=== PATIENT | female | born 1970 | race Caucasian/White ===

== ENCOUNTER 2022-09-06 15:19 | Outpatient (CLI) | payer BC, SELFPAY ==
[2022-09-06 22:26] LABS: Chloride* 111 mmol/L (96-114)
[2022-09-06 22:27] LABS: Albumin* 4.2 g/dL (3.3-5.0); Potassium* 4.5 mmol/L (3.6-5.1); Sodium* 142 mmol/L (135-149)
[2022-09-06 22:29] LABS: Creatinine* 0.6 mg/dL (0.5-1.5); Estimated Glomerular Filt Rate 108 ml/min
[2022-09-06 22:30] LABS: Alanine Aminotransferase* 22 U/L (4-35); Alkaline Phosphatase* 111 U/L (40-150); Aspartate Amino Transferase* 22 U/L (12-35); Bilirubin Total* 0.4 mg/dL (0.1-1.5); Blood Urea Nitrogen* 13 mg/dL (7-30); Calcium* 9.7 mg/dL (8.4-10.6); Carbon Dioxide* 24 mmol/L (20-32); Total Protein* 6.7 g/dL (6.0-8.3)
[2022-09-06 22:46] LABS: Glucose* 96 mg/dL (60-115)
== END 2022-09-06 15:20 | disposition home or self-care (01) ==
PROVIDERS: PCP Family Medicine; Visit Provider Family Medicine
DX: I49.9 Cardiac arrhythmia, unspecified (principal)
CPT/HCPCS: 80053; 84443

== ENCOUNTER 2022-09-16 12:37 | Outpatient (CLI) | payer BC, SELFPAY | END 2022-09-16 12:38 | disposition home or self-care (01) | LOC: RAD 12:38 | PROVIDERS: PCP Family Medicine; Visit Provider Family Medicine | DX: I49.8 Other specified cardiac arrhythmias (principal) | CPT/HCPCS: 93306 ==

== ENCOUNTER 2023-08-01 13:08 | Outpatient (CLI) | payer BC, SELFPAY ==
--- NOTE | 2023-08-01 13:00 | CRLHL7_ITS ---
For Patients: As a result of the Century Cures Act, medical imaging exams and procedure reports are released immediately into your electronic medical record. You may view this report before your referring provider. If you have questions, please contact your health care provider. Indication: Cellulitis, right face and periorbital. Technique: Helical axial sections were obtained through the facial skeleton, mandible and adjacent structures without intravenous contrast material. Data was reformatted not only in axial but also coronal planes. Comparison: None available. Findings: Mild asymmetric infiltration of the subcutaneous fat about the medial right orbit (series 3, images 89 and 108). No evidence of postseptal extension. No soft tissue emphysema or radiopaque foreign body. No evidence of discrete or rim enhancing fluid collection. No acute fracture or traumatic subluxation. No evidence of osseous destruction/erosion. Symmetric appearance of the orbits without evidence of traumatic injury or infection. Paranasal sinuses and mastoid air cells are clear. Imaged intracranial structures appear within normal limits. Impression: 1. Mild asymmetric infiltration of the subcutaneous fat about the medial right orbit may reflect preseptal cellulitis. 2. No evidence of postseptal extension or discrete fluid collection. Please note that all CT scans at this facility use dose modulation, iterative reconstruction, and/or weight-based dosing when appropriate to reduce radiation dose to as low as reasonably achievable. Dictated by Jin Farrar MD @ 08/02/2023 8:13:36 AM (Electronically Signed)
== END 2023-08-01 13:09 | disposition home or self-care (01) ==
PROVIDERS: PCP Family Medicine; Visit Provider Physician Assistant Medical
DX: L03.211 Cellulitis of face (principal)
CPT/HCPCS: 70487; Q9967

== ENCOUNTER 2023-09-09 13:56 | Outpatient (CLI) | payer BC, SELFPAY | END 2023-09-09 13:57 | disposition home or self-care (01) | PROVIDERS: PCP Family Medicine; Visit Provider Family Medicine | DX: Z01.818 Encounter for other preprocedural examination (principal) | CPT/HCPCS: 80053; 80061 ==

== ENCOUNTER 2024-10-18 13:07 | Outpatient (CLI) | payer OTHER, BC, SELFPAY | END 2024-10-18 13:08 | disposition home or self-care (01) | PROVIDERS: PCP Family Medicine; Visit Provider Family Medicine | DX: I49.9 Cardiac arrhythmia, unspecified (principal); Z13.220 Encounter for screening for lipoid disorders; Z13.21 Encounter for screening for nutritional disorder; Z13.29 Encounter for screening for other suspected endocrine disorder | CPT/HCPCS: 80053; 80061; 82306; 84443 ==

== ENCOUNTER 2024-12-13 06:44 | Outpatient (CLI) | payer OTHER, BC, SELFPAY ==
--- NOTE | 2024-12-13 09:19 | P.ANES_ITS ---
Anesthesia Charges Start Date/Time Anesthesia Start Date: 12/13/24 Anesthesia Start Time: 07:55 Stop Date/Time Anesthesia Stop Date: 12/13/24 Anesthesia Stop Time: 08:32 Coding CPT Codes CPT Codes: CARLOS LWDean INTST NDSC NOS - 20789 ([id number]) P2 - PATIENT W/MILD SYST DISEASE, QX - SEWER PIPE LAYER HELPER SVC W/ MD MED DIRECTION, QK - BOXING MACHINE OPERATOR 2-4 CNCRNT ANES PROC
--- NOTE | 2024-12-13 09:19 | W.ANESCHARGE ---
Anesthesia Charges Start Date/Time Anesthesia Start Date: 12/13/24 Anesthesia Start Time: 07:55 Stop Date/Time Anesthesia Stop Date: 12/13/24 Anesthesia Stop Time: 08:32 Coding CPT Codes CPT Codes: CARLOS LWDean INTST NDSC NOS - 99183 ([id number]) P2 - PATIENT W/MILD SYST DISEASE, QX - OLAP DEVELOPER SVC W/ MD MED DIRECTION, QK - PATIENT OFFICE REP 2-4 CNCRNT ANES PROC
--- NOTE | 2024-12-13 09:39 | P.ANES_ITS ---
Anesthesia Charges Start Date/Time Anesthesia Start Date: 12/13/24 Anesthesia Start Time: 07:55 Stop Date/Time Anesthesia Stop Date: 12/13/24 Anesthesia Stop Time: 08:32 Coding CPT Codes CPT Codes: CARLOS LWR INTST NDSC NOS - 56535 ([id number]) P2 - PATIENT W/MILD SYST DISEASE, QK - BAR TACKER SEWING MACHINE 2-4 CNCRNT ANES PROC, QX - MARKING MACHINE OPERATOR SVC W/ MD MED DIRECTION
--- NOTE | 2024-12-13 09:39 | W.ANESCHARGE ---
Anesthesia Charges Start Date/Time Anesthesia Start Date: 12/13/24 Anesthesia Start Time: 07:55 Stop Date/Time Anesthesia Stop Date: 12/13/24 Anesthesia Stop Time: 08:32 Coding CPT Codes CPT Codes: CARLOS LWR INTST NDSC NOS - 26716 ([id number]) P2 - PATIENT W/MILD SYST DISEASE, QK - ROTARY DRILL RIG OPERATOR 2-4 CNCRNT ANES PROC, QX - ARMATURE BALANCER SVC W/ MD MED DIRECTION
== END 2024-12-13 06:45 | disposition home or self-care (01) ==
LOC: OP CLINIC 06:45
PROVIDERS: PCP Family Medicine; Visit Provider Surgery
DX: R19.5 Other fecal abnormalities (principal); D12.0 Benign neoplasm of cecum; D12.4 Benign neoplasm of descending colon; D12.3 Benign neoplasm of transverse colon; D12.5 Benign neoplasm of sigmoid colon; D12.8 Benign neoplasm of rectum
CPT/HCPCS: 00811; 45385; J2704

== ENCOUNTER 2024-12-24 11:40 | Outpatient (CLI) | payer OTHER, BC, SELFPAY | END 2024-12-24 11:41 | disposition home or self-care (01) | PROVIDERS: PCP Family Medicine; Visit Provider Family Medicine | DX: L03.211 Cellulitis of face (principal); B96.89 Other specified bacterial agents as the cause of diseases classified elsewhere | CPT/HCPCS: 87070 ==

== ENCOUNTER 2025-01-11 14:18 | Emergency (ER) | payer OTHER, BC, SELFPAY ==
--- OUTSIDE RECORDS SUMMARY | 2025-01-11 14:22 | XMS_ITS | Clinical Summary ---
Author Organization [facility] Address [address] [place] [address] Care Team Providers Care Cto Name Role Phone Braulio Guido MD Unavailable [phone] Andrew Ramey MD Primary Care Provider [phone] Allergies Active Allergy Reactions Criticality Noted Date Comments Hydroxyzine 02/10/2016 Eszopiclone 02/10/2016 Zolpidem 02/10/2016 Medications LORazepam (ATIVAN) 0.5 MG tablet Take 0.5 mg by mouth every 6 hours as needed for anxiety Active escitalopram (LEXAPRO) 10 MG tablet Take 10 mg by mouth daily Active promethazine (PHENERGAN) 25 MG tablet Take 25 mg by mouth every 6 hours as needed for nausea Active traMADol (ULTRAM) 50 MG tablet Take 50 mg by mouth every 6 hours as needed for severe pain Active benzonatate (TESSALON) 100 MG capsuleIndicatio ns:Community acquired pneumonia, unspecified laterality Take 1 capsule (100 mg) by mouth 3 times daily as needed for cough 30 capsule 9 Active albuterol (PROAIR HFA/PROVENTIL HFA/VENTOLIN HFA) 108 (90 Base) MCG/ACT inhaler Inhale 2 puffs into the lungs every 4 hours as needed for shortness of breath / dyspnea or wheezing 1 Inhaler 9 Active Active Problems Problem Noted Date Diagnosed Date Intractable nausea and vomiting 11/04/2018 Resolved Problems Problem Noted Date Diagnosed Date Resolved Date Ankle sprain 08/09/2011 08/27/2011 Family History Medical History Relation Comments Aneurysm Father Melanoma Mother Glaucoma No family hx of Macular Degeneration No family hx of Relation Status Comments Father Mother Social History Tobacco Use Types Packs/Day Years Used Date Smoking Tobacco: Every Day Adolescent Education Answer Date Record ed Getting School Help Needed Not on file 07/03 Comments Unknown Sex and Gender Information Value Date Recorded Sex Assigned at Not on file Legal Sex Female 3:20 AM BRAND DIRECTOR Gender Identity Not on file Sexual Orientation Not on file Last Filed Vital Signs Vital Sign Reading Time Taken Comments Blood Pressure 185/115 07/27/2023 1:23 PM CDT Pulse 87 07/27/2023 1:23 PM CDT Temperature 36.3 C (97.4 F) 07/27/2023 1:23 PM CDT Respiratory Rate 22 11/07/2018 11:5 4 AM BRAND DIRECTOR Oxygen Saturation 97% 07/27/2023 1:23 PM CDT Inhaled Oxygen Concentration - - Weight 80.6 kg (177 lb 12.8 oz) 11/04/2018 2:40 PM BRAND DIRECTOR Height 167.6 cm (5' 6) 11/04/2018 2:40 PM BRAND DIRECTOR Body Mass Index 28.7 11/04/2018 2:40 PM BRAND DIRECTOR Plan of Treatment Health Maintenance Due Date Last Done Comments ADVANCE CARE PLANNING 1969 ANNUAL REVIEW OF HM ORDERS 1969 CT COLONOGRAPHY 1969 FIT 1969 FLEX SIG 1969 MAMMO SCREENING 1969 sDNA (Cologuard) 1969 YEARLY PREVENTIVE VISIT 1972 COLONOSCOPY 12/21/1979 COLORECTAL CANCER SCREENING 12/21/1979 HIV SCREENING 1984 HEPATITIS C SCREENING 12/21/1987 HEPATITIS B IMMUNIZATION (1 of 3 - 19+ 3-dose series) 1988 Pneumococcal Vaccine: 50+ Years (1 of 2 - PCV) 1988 DTAP/TDAP/TD IMMUNIZATION (1 - Tdap) 1994 LIPID 2009 LUNG CANCER SCREENING 12/21/2019 ZOSTER IMMUNIZATION (1 of 2) 12/21/2019 PAP 08/23/2021 08/23/2018, 08/23/2018 DIABETES SCREENING 11/07/2021 11/07/2018, 0 11/04/2018, 11/02/2018, Additional history exists COVID-19 Vaccine (2023- season) 2024 INFLUENZA VACCINE (#1) 2024 PHQ-2 (once per calendar year) 2024 HPV IMMUNIZATION Aged Out No longer e ligible based on patient's age to complete this topic MENINGITIS IMMUNIZATION Aged Out No l onger eligible based on patient's age to complete this topic Procedures Procedure Name Priority Date/Time Associated Diagnosis Comments BASIC METABOLIC PANEL STAT 11/07/2018 1:23 PM BRAND DIRECTOR from Last 3 Months or Most Recently Relevant to Health Maintenance Results * (ABNORMAL) Basic metabolic panel (11/07/2018 1:23 PM BRAND DIRECTOR) Sodium 143 133 - 144 mmol/L 11/07/2018 1:43 PM [facility] Potassium 3.5 3.4 - 5.3 mmol/L 11/07/2018 1:43 PM [facility] Chloride 111(H) 94 - 109 mmol/L 11/07/2018 1:43 PM [facility] Carbon Dioxide 24 20 - 32 mmol/L 11/07/2018 1:49 PM [facility] Anion Gap 8 3 - 14 mmol/L 11/07/2018 1:49 PM [facility] Glucose 105(H) 70 - 99 mg/dL 11/07/2018 1:49 PM [facility] Urea Nitrogen 5(L) 7 - 30 mg/dL 11/07/2018 1:49 PM [facility] Creatinine 0.55 0.52 - 1.04 mg/dL 11/07/2018 1:49 PM [facility] GFR Estimate >90 >60 mL/min/{1. 73_m2} 11/07/2018 1:49 PM [facility] Comment: Non GFR Calc Starting 09/12/2018, serum creatinine based estimated GFR (eGFR) will be calculated using the Chronic Kidney Disease Epidemiology Collaboration (CKD-EPI) equation. GFR Estimate If Black >90 >60 mL/min/{1. 73_m2} 11/07/2018 1:49 PM [facility] Comment: GFR Calc Starting 09/12/2018, serum creatinine based estimated GFR (eGFR) will be calculated using the Chronic Kidney Disease Epidemiology Collaboration (CKD-EPI) equation. Calcium 8.4(L) 8.5 - 10.1 mg/dL 11/07/2018 1:49 PM BRAND DIRECTOR [facility] Blood specimen (specimen) 11/07/2018 1:23 PM BRAND DIRECTOR 11/07/2018 1:29 PM BRAND DIRECTOR us Nora Lugo MD LAB - BLOOD ORDERABLES Fin al Result [facility] [address] [place] [id number] [phone] from Last 3 Months or Most Recently Relevant to Health Maintenance Insurance [place] OF [facility] [place] Advance Directives For more information, please contact: [phone] * Full Code (Latest Code Status on File) Date Activated Date Inactivated Comments 11/05/2018 9:46 AM 11/07/2018 11:34 AM Question Answer Comments Code status determined by: Discussion with carol nt/legal decision maker * Full Code Date Activated Date Inactivated Comments 11/04/2018 2:42 PM 11/05/2018 9:46 AM Question Answer Comments Code status determined by: Discussion with carol nt/legal decision maker Care Teams Cto Relationship Specialty Start Date End Date Andrew Ramey MD [facility] [address] [place] [address] PCP - General Family Practice 11/04/18 Braulio Guido MD [address] [place] [address] [id number] Ophthalmology 12/21/16
--- OUTSIDE RECORDS SUMMARY | 2025-01-11 14:22 | XMS_ITS | Clinical Summary ---
Author Organization [facility] Address [address] [place] [address] Care Team Providers Care Human Capital Manager Name Role Phone Pcp, No Primary Care Provider Unavailabl e Allergies Active Allergy Reactions Criticality Noted Date Comments Hydroxyzine Other - Describe In Comment Field 0 02/10/2016 Eszopiclone Other - Describe In Comment Field 0 02/10/2016 Zolpidem Other - Describe In Comment Field Medications propranolol (INDERAL) 20 mg tablet Take 20 mg by mouth 2 times daily. Active gabapentin (NEURONTIN) 100 mg capsule TAKE 2 CAPSULES BY MOUTH EVERY MORNING AND 3 CAP AT BEDTIME ([facility] FILLED 450 ON DECEMBER 31) 4 Active HYDROcodone-vivienne taminophen (5-325 mg/tablet) TAKE 1 TABLET OP EVERY 4-6 HOURS NEEDED FOR PAIN 3 Active LORazepam (ATIVAN) 0.5 mg tab Take 0.5 mg by mouth. Active nicotine 21 mg/24 hr (NICODERM; HABITROL) 21 mg/24 hr patch APPLY 1 PATCH TOPICALLY TO THE SKIN EVERY 24 HOURS 3 Active nicotine (NICORETTE) 4 mg gum TAKE 1 EACH BUCCALLY EVERY 2 HOURS NEEDED 3 Active propranolol ER (INDERAL LA) 120 mg Cs24 Sustained-Relea se capsule Take 120 mg by mouth once daily. 4 Active propranolol ER (INDERAL LA) 80 mg Cs24 Sustained-Relea se capsule Take 80 mg by mouth once daily. 3 Active traMADoL (ULTRAM) 50 mg tablet Take 50 mg by mouth. Active promethazine (PHENERGAN) 25 mg tablet Take 25 mg by mouth. Active escitalopram oxalate (LEXAPRO) 10 mg tablet Take 10 mg by mouth. Active levoFLOXacin 500 mg tablet Take 500 mg by mouth once daily before evening meal. Taking one a day for 7 days 5 Active buPROPion 300 mg Extended-Releas e tablet Take 300 mg by mouth once daily. 5 Active ciprofloxacin HCl 0.3 % ophthalmic solution Place 1 Drop into right eye. 5 Active cholecalciferol (vitamin D3) (VITAMIN D3 ORAL) Take by mouth. Activ e Active Problems Problem Noted Date Diagnosed Date Migraine without status migrainosus, not intract able 07/08/2015 Anxiety 11/20/2013 Psychosocial stressors 11/20/2013 Insomnia 11/20/2013 Encounters Date Type Department Care Team Description 01/11/2025 12:30 PM CDT Office Visit [address] [phone] Justin Velasco MD Concerns (Diagnosed with gram negative leona on 12/24. Still having sinus issues and headaches.) 01/11/2025 Travel 01/11/2025 Nurse Triage [facility] Centralized Nurse Triage Pcp, No Sinus Problem from Last 3 Months Social History Tobacco Use Types Packs/Day Years Used Date Smoking Tobacco: Every Day Cigarettes 1 20 Smokeless Tobacco: Never Tobacco Cessation:Ready to Q uit: No; Counseling Given: Yes Alcohol Use Standard Drinks/Week Comments Yes 1.7 (1 standard drink = 0.6 oz p ure alcohol) Social Connections Answer Date Recorded Do you often feel lonely or isolated from those around you? 0 01/11/2025 Financial Resource Strain Answer Date R ecorded Difficulty of Paying Living Expenses 3 01/11/2025 Difficulty of Paying Living Expenses Not on file 01/11/2025 Food Insecurity Answer Date Recorded Do you worry your food will run out before you are able to buy more? 1 01/11/2025 Transportation Needs Answer Date Record ed Does lack of transportation keep you from medica l appointments? 1 01/11/2025 Does lack of transportation keep you from work, meetings or getting things that you need? 1 01/11/2025 Housing Stability Answer Date Recorded What is your housing situation today? 1 01/11/2025 Utilities Answer Date Recorded Do you have trouble paying f or utilities (for example, heat, electricity, water, phone)? 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 on file Not on madelaine e Not on file Obstetrics History Last Filed Vital Signs Vital Sign Reading Time Taken Comments Blood Pressure 108/78 01/11/2025 12:36 PM CDT Pulse 80 01/11/2025 12:36 PM CDT Temperature 37.6 C (99.6 F) 10/04/2016 3:35 PM COMPUTER INFORMATION SYSTEMS INSTRUCTOR Respiratory Rate 14 10/04/2016 3:35 PM COMPUTER INFORMATION SYSTEMS INSTRUCTOR Oxygen Saturation 98% 01/11/2025 12:36 PM CDT Inhaled Oxygen Concentration - - Weight 96.2 kg (212 lb) 01/11/2025 12:36 PM CDT Height 167.6 cm (5' 6) 01/11/2025 12:36 PM CDT Body Mass Index 34.22 01/11/2025 12:36 PM CDT Plan of Treatment Health Maintenance Due Date Last Done Comments Tdap 1980 Depression screening for age 12+ 1981 HIV for age 15-65 1984 Hepatitis C screening for age 18-79 12/21/1987 Pneumococcal series for age 50+ (1 of 2 - PCV) 1988 Tetanus booster 1989 Colonoscopy through age 75 2014 Lipids for age 45-75 2014 Mammogram for age 45-[address] (for lung CA) age 50-80 12/21/2019 Zoster (shingles) series for age 50+ (1 of 2) 12/21/2019 Pap test for age 21-65 08/23/2021 8, 08/23/2018, 09/26/2012 [facility] COVID-19 vaccine series ( - 2023- season) 2024 Influenza Vaccine (Season Ended) 2025 BMI (ht and wt on same day) for age 18+ 01/11/2026 01/11/2025, 10/04/2016 Procedures Procedure Name Priority Date/Time Associated Diagnosis Comments BOOKING AGENT THIN PREP PAP SCREEN IMAGED Routine 08/23/2018 1:00 PM COMPUTER INFORMATION SYSTEMS INSTRUCTOR from Last 3 Months or Most Recently Relevant to Health Maintenance Results * BOOKING AGENT THIN PREP PAP SCREEN IMAGED (08/23/2018 1:00 PM COMPUTER INFORMATION SYSTEMS INSTRUCTOR) Case Report Gynecologic Cytology Report Case: [id number] Authorizing Provider: Cecily Priest MD Collected: 08/23/2018 1300 First Screen: Donna Gunn Received: 08/25/2018 1622 Specimen: BOOKING AGENT ThinPrep Vial Screening, Cervical/Vaginal 09/04/2018 12:43 PM COMPUTER INFORMATION SYSTEMS INSTRUCTOR [facility]- ENTRAL LABORATORY INTERPRETATION/ RESULT NEGATIVE FOR INTRAEPITHELIAL LESION OR MALIGNANCY (NIL) (none) 09/04/2018 12:43 PM COMPUTER INFORMATION SYSTEMS INSTRUCTOR [facility] ENTRAL LABORATORY at 1243 COMPUTER INFORMATION SYSTEMS INSTRUCTOR ORGANISM(S) Shift in sharon suggestive of bacterial vaginosis 09/04/2018 12:43 PM COMPUTER INFORMATION SYSTEMS INSTRUCTOR [facility] SPECIMEN ADEQUACY Satisfactory for evaluation Endocervical component present 09/04/2018 12:43 PM COMPUTER INFORMATION SYSTEMS INSTRUCTOR [facility] ENTRAL LAB[facility] HPV REQUEST HPV and PAP 09/04/2018 12:43 PM COMPUTER INFORMATION SYSTEMS INSTRUCTOR [facility] ENTRAL LABORATORY Date of LMP 09/04/2018 12:43 PM COMPUTER INFORMATION SYSTEMS INSTRUCTOR [facility] EN[facility] Comment:2006 Last Pap Date 09/04/2018 12:43 PM COMPUTER INFORMATION SYSTEMS INSTRUCTOR [facility] ENTRAL LAB[facility]ORY Comment:unknown Last Pap Result NIL 8 12:43 PM COMPUTER INFORMATION SYSTEMS INSTRUCTOR [facility] ENTRAL LAB[facility] Automated Review Successful 09/04/2018 12:43 PM COMPUTER INFORMATION SYSTEMS INSTRUCTOR [facility] [place] [facility] ENTRAL LABORATORY Comment:Specimen processed s uccessfully by automated medical or surgical instrument maker device, ThinPrep Imaging System, [employer] ANCILLARY TESTING BOOKING AGENT HPV Ordered, Please see separate report 09/04/2018 12:43 PM COMPUTER INFORMATION SYSTEMS INSTRUCTOR [facility] ENTRAL LABORATORY Note The pap test is a screening technique, not a diagnostic procedure. It is used primarily to screen for squamous cancers and precursor lesions. Published studies have shown that it is subject to both false negative and false positive results. The pap test should not be used as the sole means to diagnose or exclude pre-malignant and malignant lesions. Cytology is screened and interpreted at [facility], Central Laboratory - [address], [place] [address] and [facility] - [address]; [place] [address] and [facility] - [address]; [place] [address] and [facility] [address]; [place] [address] 09/04/2018 12:43 PM COMPUTER INFORMATION SYSTEMS INSTRUCTOR [facility]-C ENTRAL LABORATORY Other (Cervical/Vagina l) 08/23/2018 1:00 PM COMPUTER INFORMATION SYSTEMS INSTRUCTOR 08/25/2018 4:22 PM COMPUTER INFORMATION SYSTEMS INSTRUCTOR us Cecily Priest MD PATHOLOGY/CYTOLOGY Final Res ult [facility]-CENTRAL LABORATORY [address] [place] [address], from Last 3 Months or Most Recently Relevant to Health Maintenance Insurance [facility] Care Teams Human Capital Manager Relationship Specialty Start Date End Date Pcp, No . PCP - General 05/21/24
[2025-01-11 14:28] VITALS: BP 140/94; PULSE 96; RESP 18; TEMP 36.6; O2SAT 96; BMI 34.1
--- NOTE | 2025-01-11 14:45 | CRLHL7_ITS ---
For Patients: As a result of the Century Cures Act, medical imaging exams and procedure reports are released immediately into your electronic medical record. You may view this report before your referring provider. If you have questions, please contact your health care provider. INDICATION: Postop complication. TECHNIQUE: CT of the orbits/face with 99 cc Isovue 370 intravenous contrast. Multiplanar reformats are included. COMPARISON: Facial bone CT from 08/01/2023. FINDINGS: Orbits: Within normal limits. Facial soft tissues: Within normal limits. Imaged intracranial structures: Within normal limits. Paranasal sinuses and mastoid air cells: Overall well aerated. Osseous structures: Within normal limits. IMPRESSION: 1. No significant orbital/facial soft tissue abnormalities. Please note that all CT scans at this facility use dose modulation, iterative reconstruction, and/or weight-based dosing when appropriate to reduce radiation dose to as low as reasonably achievable. Dictated by Martin De La Garza MD @ 01/11/2025 4:00:05 PM (Electronically Signed)
--- OUTSIDE RECORDS SUMMARY | 2025-01-11 14:55 | XMS_ITS | Clinical Summary ---
Author Organization [facility] Address [address] [place] [address] Care Team Providers Care Customer Contact Representative Name Role Phone Pcp, No Primary Care [...] Description 01/11/2025 12:30 PM CDT Office Visit [address] [phone] Justin Velasco MD Concerns (Diagnosed with gram negative leona on 12/24. Still having sinus issues and headaches.) 01/11/2025 Travel 01/11/2025 Nurse Triage [facility] Centralized Nurse Triage Pcp, No Sinus Problem [...] on file Legal Sex Female 5:20 AM PSYCH ARNP Gender Identity Not on file Sexual Orientation [...] 37.6 C (99.6 F) 10/04/2016 3:35 PM PSYCH ARNP Respiratory Rate 14 10/04/2016 3:35 PM PSYCH ARNP Oxygen Saturation 98% 01/11/2025 12:36 PM CDT [...] 08/23/2021 8, 08/23/2018, 09/26/2012 [facility] COVID-19 vaccine series ( - 2023- season) 2024 Influenza Vaccine (Season Ended) 2025 BMI (ht and wt on same day) for age 18+ 01/11/2026 01/11/2025, 10/04/2016 Procedures Procedure Name Priority Date/Time Associated Diagnosis Comments DELIVERY MGR THIN PREP PAP SCREEN IMAGED Routine 08/23/2018 1:00 PM PSYCH ARNP from Last 3 Months or Most Recently Relevant to Health Maintenance Results * DELIVERY MGR THIN PREP PAP SCREEN IMAGED (08/23/2018 1:00 PM PSYCH ARNP) Case Report Gynecologic Cytology Report Case: [id number] Authorizing Provider: Cecily Priest MD Collected: 08/23/2018 1300 First Screen: Donna Gunn Received: 08/25/2018 1622 Specimen: DELIVERY MGR ThinPrep Vial Screening, Cervical/Vaginal 09/04/2018 12:43 PM PSYCH ARNP [facility]- ENTRAL LABORATORY INTERPRETATION/ RESULT NEGATIVE FOR INTRAEPITHELIAL LESION OR MALIGNANCY (NIL) (none) 09/04/2018 12:43 PM PSYCH ARNP [facility] ENTRAL LABORATORY at 1243 PSYCH ARNP ORGANISM(S) Shift in sharon suggestive of bacterial vaginosis 09/04/2018 12:43 PM [facility]YCH [facility] SPECIMEN ADEQUACY Satisfactory for evaluation Endocervical component present 09/04/2018 12:43 PM PSYCH ARNP [facility] ENTRAL LABORATORY HPV REQUEST HPV and PAP 09/04/2018 12:43 PM PSYCH ARNP [facility]-C ENTRAL LABORATORY Date of LMP 09/04/2018 12:43 PM PSYCH ARNP [facility] ENTRAL LABORATORY Comment:2006 Last Pap Date 09/04/2018 12:43 PM PSYCH ARNP [facility] EN[facility] Comment:unknown Last Pap Result NIL 8 12:43 PM PSYCH ARNP [facility] Automated Review Successful 09/04/2018 12:43 PM PSYCH ARNP [facility] Comment:Specimen processed s uccessfully by automated modeling manager device, ThinPrep Imaging System, [employer] ANCILLARY TESTING DELIVERY MGR HPV Ordered, Please see separate report 09/04/2018 12:43 PM PSYCH ARNP [facility] EN[facility] Note The pap test is [...] lesions. Cytology is screened and interpreted at [facility], Central Laboratory - [address], [place] [address] and [facility] - [address]; [place] [address] and [facility] - [address]; [place] [address] and [facility] [address]; [place] [address] 09/04/2018 12:43 PM PSYCH ARNP [facility] LABOR[facility]-C ENTRAL LABORATORY Other (Cervical/Vagina l) 08/23/2018 1:00 PM PSYCH ARNP 08/25/2018 4:22 PM PSYCH ARNP us Cecily Priest MD PATHOLOGY/CYTOLOGY Final Res ult [facility]-CENTRAL LABORATORY [address] [place] [address], from Last 3 Months or Most Recently Relevant to Health Maintenance Insurance [facility] Care Teams Customer Contact Representative Relationship Specialty Start Date End Date Pcp, No . PCP - General 05/21/24
--- OUTSIDE RECORDS SUMMARY | 2025-01-11 14:55 | XMS_ITS | Clinical Summary ---
Author Organization [facility] Address [address] [place] [id number] Care Team Providers Care Digital Marketing Executive Name Role Phone Braulio Guido MD Unavailable [phone] Andrew Ramey MD Primary Care Provider [phone] Allergies Active Allergy Reactions Criticality Noted Date [...] on file Legal Sex Female 3:20 AM LEGAL NURSE CONSULTANT Gender Identity Not on file Sexual Orientation Not on file Last Filed Vital Signs Vital Sign Reading Time Taken Comments Blood Pressure 185/115 07/27/2023 1:23 PM CDT Pulse 87 07/27/2023 1:23 PM CDT Temperature 36.3 C (97.4 F) 07/27/2023 1:23 PM CDT Respiratory Rate 22 11/07/2018 11:5 4 AM LEGAL NURSE CONSULTANT Oxygen Saturation 97% 07/27/2023 1:23 PM CDT Inhaled Oxygen Concentration - - Weight 80.6 kg (177 lb 12.8 oz) 11/04/2018 2:40 PM LEGAL NURSE CONSULTANT Height 167.6 cm (5' 6) 11/04/2018 2:40 PM LEGAL NURSE CONSULTANT Body Mass Index 28.7 11/04/2018 2:40 PM LEGAL NURSE CONSULTANT Plan of Treatment Health Maintenance Due Date [...] BASIC METABOLIC PANEL STAT 11/07/2018 1:23 PM LEGAL NURSE CONSULTANT from Last 3 Months or Most Recently Relevant to Health Maintenance Results * (ABNORMAL) Basic metabolic panel (11/07/2018 1:23 PM LEGAL NURSE CONSULTANT) Sodium 143 133 - 144 mmol/L 11/07/2018 1:43 PM [facility] Potassium 3.5 3.4 - 5.3 mmol/L 11/07/2018 1:43 PM [facility] Chloride 111(H) 94 - 109 mmol/L 11/07/2018 1:43 PM [facility] Carbon Dioxide 24 20 - 32 mmol/L 11/07/2018 1:49 PM [facility] Anion Gap 8 3 - 14 mmol/L 11/07/2018 1:49 PM [facility] Glucose 105(H) 70 - 99 mg/dL 11/07/2018 1:49 PM [facility] Urea Nitrogen 5(L) 7 - 30 mg/dL 11/07/2018 1:49 PM [facility] Creatinine 0.55 0.52 - 1.04 mg/dL 11/07/2018 1:49 PM [facility] GFR Estimate >90 >60 mL/min/{1. 73_m2} 11/07/2018 1:49 PM [facility] Comment: Non GFR Calc Starting 09/12/2018, serum creatinine based estimated GFR (eGFR) will be calculated using the Chronic Kidney Disease Epidemiology Collaboration (CKD-EPI) equation. GFR Estimate If Black >90 >60 mL/min/{1. 73_m2} 11/07/2018 1:49 PM [facility] Comment: GFR Calc Starting 09/12/2018, serum creatinine based estimated GFR (eGFR) will be calculated using the Chronic Kidney Disease Epidemiology Collaboration (CKD-EPI) equation. Calcium 8.4(L) 8.5 - 10.1 mg/dL 11/07/2018 1:49 PM LEGAL NURSE CONSULTANT [facility] Blood specimen (specimen) 11/07/2018 1:23 PM LEGAL NURSE CONSULTANT 11/07/2018 1:29 PM LEGAL NURSE CONSULTANT us Nora Lugo MD LAB - BLOOD ORDERABLES Fin al Result [facility] [address] [place] [id number] [phone] from Last 3 Months or Most Recently Relevant to Health Maintenance Insurance [place] BC[place] OUT OF [facility] [place] OF [place] Advance Directives For more information, please contact: [phone] * Full Code (Latest Code Status on File) Date Activated Date Inactivated Comments 11/05/2018 9:46 AM 11/07/2018 11:34 AM Question Answer Comments Code status determined by: Discussion with carol nt/legal decision maker * Full Code Date Activated Date Inactivated Comments 11/04/2018 2:42 PM 11/05/2018 9:46 AM Question Answer Comments Code status determined by: Discussion with carol nt/legal decision maker Care Teams Digital Marketing Executive Relationship Specialty Start Date End Date Andrew Ramey MD [facility] [address] [place] [address] PCP - General Family Practice 11/04/18 Braulio Guido MD [address] [place] [id number] Ophthalmology 12/21/16
--- NOTE | 2025-01-11 15:01 | ED.GENADULT ---
HPI - General Adult General Chief complaint: Headache/Migraine Stated complaint: positive for Gram-negative bacteria in right eye Time Seen by Provider: 01/11/25 14:31 Source: patient Mode of arrival: ambulatory Limitations: no limitations History of Present Illness HPI narrative: 54-year-old female presenting today with facial pain. 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 She states that she has had poor follow-up with her surgeon as the surgeon has been telling her to follow up with primary care instead. She saw her primary care provider at the end of November, cellulitis was diagnosed at that time and a swab of her nasal discharge was done. This grew back Gram-negative rods that were pansensitive. She was placed on Augmentin for 7 days. She then followed up finally with her surgeon on the 31 of December. At that time she states that the removed the drainage to that was still in place. She was then put on ciprofloxacin for 10 days. She had a follow-up appointment at around 10 days, still was not feeling better, complaining of a lot of pressure in her face. At that time they switched her to Levaquin and she is currently taking that. [facility] with continued facial pressure and headaches. Clinic sent her to the emergency department for evaluation. Patient denies fevers or chills. She had a lot of nasal discharge which is now better after antibiotic treatment. She denies changes in her vision. She is has congestion on and off. She continues to complain of a lot of facial pressure just behind her nose and swelling of the area. Related Data Home Medications ?Medication ?Instructions ?Recorded ?Confirmed levofloxacin 500 mg tablet 500 mg PO DAILY 01/11/25 01/11/25 Previous Rx's ?Medication ?Instructions ?Recorded gabapentin 100 mg capsule See Rx Instructions PO BID #450 02/28/24 caps cholecalciferol (vitamin D3) 50 50 mcg PO QDAY #90 caps 10/19/24 mcg (2,000 unit) capsule bupropion HCl 300 mg 24 hr tablet, 300 mg PO QAM #90 tabs 11/29/24 extended release (Wellbutrin XL) propranolol 120 mg capsule,24 120 mg PO QDAY #90 caps 11/29/24 hr,extended release amoxicillin 875 mg-potassium 1 tab PO BID #20 tabs 12/24/24 clavulanate 125 mg tablet blood pressure test kit-medium #1 ea 12/24/24 clonazepam 1 mg tablet (Klonopin) 1 mg PO QHS #90 tabs 12/24/24 Allergies Allergy/AdvReac Type Severity Reaction Status Date / Time No Known Allergies Allergy Unknown Verified 12/24/24 11:00 Review of Systems Status of ROS: Reports: 10 or more systems reviewed and unremarkable except as noted in History and below PFSH PFS Medical History Elevated blood pressure reading in office with white coat syndrome, without diagnosis of hypertension ?R03.0 - Elevated blood-pressure reading, without diagnosis of hypertension (ICD-10) Depression with anxiety ?F41.8 - Other specified anxiety disorders (ICD-10) Vitamin D deficiency ?E55.9 - Vitamin D deficiency, unspecified (ICD-10) Family history of melanoma ?Z80.8 - Family history of malignant neoplasm of other organs or systems (ICD-10) Cardiac dysrhythmia, unspecified ?I49.9 - Cardiac arrhythmia, unspecified (ICD-10) Family History Mother Melanoma Social History Narrative: Smoker Smoking Status: Current every day smoker Exam Narrative: Exam Narrative: Well-nourished well-developed patient in no acute distress. Alert and oriented. Answers questions appropriately. Mood and affect are appropriate. Thoughts are goal oriented and rational. No tangential or magical thinking noted. Patient speaks in full sentences without needing to catch her breath. Voice sounds slightly congested. HEENT: Normocephalic atraumatic. Pupils are equally round reactive to light. Extraocular muscles are intact. Conjunctivae are moist without any icterus noted. Moist mucous membranes. Posterior pharynx is normal. Patient does have swelling and being you in a of the eye in bridge of the nose. No significant tenderness noted. The area is not hot. Skin is slightly indurated. Nares patent. Const: Vital Signs, click to edit/add: Vital Signs - 24 hr 01/11/25 14:28 Temperature 98 F Pulse Rate [Pulse Oximeter] 96 Respiratory Rate 18 Blood Pressure [Ri ght Upper Arm] 140/94 H Pulse Oximetry 96 Oxygen Delivery Me thod Room Air Course Course ED Course: CRP slightly elevated at 2.1. WBC slightly elevated at 14.77, hemoglobin elevated at 17.6, no left significant shift. Chemistries are normal. Facial CT with contrast did not show evidence of abnormality, abscess formation. I did discuss the CT results with Dr. De La Garza. Vital Signs Vital signs: Initial Vital Signs Temperature 98 F 01/11/25 14:28 Temperature Source Temporal Artery Scan 01/11/25 14:28 Pulse Rate 96 01/11/25 14:28 Respiratory Rate 18 01/11/25 14:28 Blood Pressure 140/94 H 01/11/25 14:28 Blood Pressure Mean 109 H 01/11/25 14:28 Pulse Oximetry 96 01/11/25 14:28 Oxygen Delivery Method Room Air 01/11/25 14:28 Vital Signs Temperature 98 F 01/11/25 14:28 Pulse Rate 96 01/11/25 14:28 Respiratory Rate 18 01/11/25 14:28 Blood Pressure 140/94 H 01/11/25 14:28 Pulse Oximetry 96 01/11/25 14:28 Oxygen Delivery Method Room Air 01/11/25 14:28 Temperature 98 F 01/11/25 14:28 Pulse Rate 96 01/11/25 14:28 Respiratory Rate 18 01/11/25 14:28 Blood Pressure 140/94 H 01/11/25 14:28 Pulse Oximetry 96 01/11/25 14:28 Oxygen Delivery Method Room Air 01/11/25 14:28 Medical Decision Making [facility] Narrative Medical decision making narrative: 54-year-old female with continued facial pain postoperatively after a DCR. Will continue Levaquin as prescribed. She is currently on day 2. Recommend follow-up with surgical team and her primary care provider. Lab Data Lab results reviewed: Yes I reviewed the patient's lab results Labs: Lab Results 01/11/25 Range/Units 14:58 WBC 14.77 H (4.50-11.00) K/uL RBC 6.02 H (4.00-5.20) m/uL Hgb 17.6 H (12.0-16.0) gm/dL Hct 53.8 H (33.0-51.0) % MCV 89 (80-100) fL MCH 29 (26-34) pg MCHC 33 (32-36) gm/dL RDW Coeff of Demarcus 14.7 (11.5-15.5) % Plt Count 225 (140-440) K/uL Neut % (Auto) 62.0 (42.0-72.0) % Lymph % (Auto) 27.7 (20-44) % [place] % (Auto) 7.9 (0.0-11.0) % Eos % (Auto) 1.6 (0.0-7.0) % Baso % (Auto) 0.5 (0.0-3.0) % Neut # (Auto) 9.20 H (1.7-7.0) K/uL Lymph # (Auto) 4.10 H (0.90-2.90) K/uL [place] # (Auto) 1.20 H (0.00-0.90) K/UL Eos # (Auto) 0.20 (0.00-0.50) K/uL Baso # (Auto) 0.10 (0.00-0.30) K/uL Abs Immat Gran (auto) 0.00 (0.00-0.30) K/uL Imm/Tot Granulo (auto) 0.3 % Sodium 139 (135-149) mmol/L Potassium 4.1 (3.6-5.1) mmol/L Chloride 107 (96-114) mmol/L Carbon Dioxide 23 (20-32) mmol/L Anion Gap 9 (7-15) mEq/L BUN 12 (7-30) mg/dL Creatinine 0.8 (0.5-1.5) mg/dL Estimated Creat Clear 74.38 Estimated GFR 87 ml/min Glucose 94 (60-115) mg/dL Calcium 9.3 (8.4-10.6) mg/dL C-Reactive Protein 2.1 H (0.5-1.0) mg/dL Imaging Data Facial CT: Attestation: I have reviewed the pertinent imaging results. Radiologist's impression: TECHNIQUE: CT of the orbits/face with 99 cc Isovue 370 intravenous contrast. Multiplanar reformats are included. COMPARISON: Facial bone CT from 08/01/2023. FINDINGS: Orbits: Within normal limits. Facial soft tissues: Within normal limits. Imaged intracranial structures: Within normal limits. Paranasal sinuses and mastoid air cells: Overall well aerated. Osseous structures: Within normal limits. IMPRESSION: 1. No significant orbital/facial soft tissue abnormalities. Discharge Plan Discharge Clinical Impression: Facial pain Patient Disposition: Home, Self-Care Condition: Stable Additional Instructions: No evidence of infection or abnormality was seen on your CT scan. Continue Levaquin as prescribed. If you cannot tolerate this anymore call your surgeon to ask for a different prescription. Your hemoglobin levels and white cell count levels are all slightly elevated and have been for awhile. You should follow-up with your primary care provider to discuss this and if anything needs to be done. Prescriptions: No Action bupropion HCl [Wellbutrin XL] 300 mg tablet extended release 24 hr 300 mg PO QAM Qty: 90 1RF propranolol 120 mg capsule,extended release 24 hr 120 mg PO QDAY Qty: 90 3RF clonazepam [Klonopin] 1 mg tablet 1 mg PO QHS Qty: 90 1RF Rx Instructions: administer 30 minutes before bedtime amoxicillin-pot clavulanate 875-125 mg tablet 1 tab PO BID Qty: 20 0RF (DME) blood pressure test kit-medium Kit See Rx Instructions .Route Qty: 1 0RF Rx Instructions: As directed levofloxacin 500 mg tablet 500 mg PO DAILY gabapentin 100 mg capsule See Rx Instructions PO BID Qty: 450 1RF Rx Instructions: 2 in am and 3 po hs cholecalciferol (vitamin D3) 50 mcg (2,000 unit) capsule 50 mcg PO QDAY Qty: 90 3RF Follow Up/Referrals: Andrew Ramey MD [Primary Care Provider] - Stand Alone Forms: [employer] Info Instructions
[2025-01-11 15:23] LABS: Chloride* 107 mmol/L (96-114)
[2025-01-11 15:24] LABS: Potassium* 4.1 mmol/L (3.6-5.1); Sodium* 139 mmol/L (135-149)
[2025-01-11 15:27] LABS: Anion Gap 9 mEq/L (7-15); Blood Urea Nitrogen* 12 mg/dL (7-30); Calcium* 9.3 mg/dL (8.4-10.6); Carbon Dioxide* 23 mmol/L (20-32); Creatinine* 0.8 mg/dL (0.5-1.5); Est. Creatinine Clearance* 74.38; Estimated Glomerular Filt Rate 87 ml/min; Glucose* 94 mg/dL (60-115)
[2025-01-11 15:30] LABS: C Reactive Protein* 2.1 mg/dL (0.5-1.0)
[2025-01-11 15:38] LABS: Basophils Percent Auto 0.5 % (0.0-3.0); Eosinophils Percent Auto 1.6 % (0.0-7.0); Hematocrit 53.8 % (33.0-51.0); Hemoglobin* 17.6 gm/dL (12.0-16.0); Immature Granulocytes Pct Auto 0.3 %; Lymphocytes Percent Auto 27.7 % (20-44); Mean Corpuscular HGB Conc 33 gm/dL (32-36); Mean Corpuscular Hemoglobin 29 pg (26-34); Mean Corpuscular Volume 89 fL (80-100); Monocytes Percent Auto 7.9 % (0.0-11.0); Platelet Count* 225 K/uL (140-440); RDW Coefficient of Variation % 14.7 % (11.5-15.5); Red Blood Count 6.02 m/uL (4.00-5.20); White Blood Count* 14.77 K/uL (4.50-11.00)
[2025-01-11 15:51] LABS: Slide Review Reflex No
[2025-01-11 16:06] VITALS: BP 136/87; PULSE 64; RESP 16; O2SAT 97
== END 2025-01-11 16:35 | disposition home or self-care (01) ==
PROVIDERS: Emergency Provider Family Medicine; PCP Family Medicine
DX: R51.9 Headache, unspecified (principal)
CPT/HCPCS: 36415; 70487; 80048; 85025; 86140; 99284; 99285; Q9967

== ENCOUNTER 2025-08-19 13:42 | Outpatient (CLI) | payer OTHER, BC, SELFPAY | END 2025-08-19 13:43 | disposition home or self-care (01) | PROVIDERS: PCP Family Medicine; Visit Provider Family Medicine | DX: R10.9 Unspecified abdominal pain (principal); R19.4 Change in bowel habit; R25.1 Tremor, unspecified | CPT/HCPCS: 80053 ==

== ENCOUNTER 2025-08-20 07:00 | Outpatient (CLI) | payer OTHER, BC, SELFPAY | END 2025-08-20 07:01 | disposition home or self-care (01) | LOC: NFLDREF 08-24 18:17 | PROVIDERS: PCP Family Medicine; Referring Provider Family Medicine; Visit Provider Family Medicine | DX: R19.4 Change in bowel habit (principal); R25.1 Tremor, unspecified | CPT/HCPCS: 83789; 87045; 87046; 87177; 87209; 87338; 87427; 87493; 87505 ==